=== PATIENT | male | born 1965 | race American Indian/Alaskan Native ===

== ENCOUNTER 2017-07-26 09:46 | Emergency (ER) | payer BC ==
[2017-07-26 09:46] VITALS: BMI 36.9
[2017-07-26 10:18] VITALS: TEMP 97.9
--- NOTE | 2017-07-26 11:55 | ED PDOC ---
Arrival/HPI - General Chief Complaint: Lower Extremity Problem/Injury Time Seen by Provider: 07/26/17 10:31 Historian: Patient - History of Present Illness Narrative History of Present Illness (Text): 07/26/17 11:52 52yo male with no PMhx present with complaint of right great toe pain x 2days. Pain with ambulation. Did not take any analgesic. Denies trauma ,swelling, redness, any other complaint. Past Medical History - Provider Review Nursing Documentation Reviewed: Yes - Infectious Disease Hx of Infectious Diseases: None - Cardiac Hx Cardiac Disorders: No - Pulmonary Hx Respiratory Disorders: No - Neurological Hx Neurological Disorder: No - HEENT Hx HEENT Disorder: No - Renal Hx Renal Disorder: No - Endocrine/Metabolic Hx Endocrine Disorders: No - Hematological/Oncological Hx Blood Disorders: No - Integumentary Hx Dermatological Disorder: No - Musculoskeletal/Rheumatological Hx Musculoskeletal Disorders: No - Gastrointestinal Hx Gastrointestinal Disorders: No - Genitourinary/Gynecological Hx Genitourinary Disorders: No - Psychiatric Hx Psychophysiologic Disorder: No Hx Substance Use: No - Anesthesia Hx Anesthesia: No Hx Anesthesia Reactions: No Hx Malignant Hyperthermia: No Family/Social History - Physician Review Nursing Documentation Reviewed: Yes Family/Social History: Unknown Family HX Smoking Status: Current Some Days Smoker Hx Alcohol Use: Yes Frequency of alcohol use: Daily Hx Substance Use: No Allergies/Home Meds Allergies/Adverse Reactions: Allergies No Known Allergies Allergy (Verified 07/26/17 10:19) Home Medications: Home Meds Medication Instructions Recorded Confirmed Cetirizine HCl [Zyrtec] 1 tab PO DAILY 11/22/15 07/26/17 Review of Systems - Physician Review All systems were reviewed & negative as marked: Yes - Review of Systems Constitutional: Normal Eyes: Normal ENT: Normal Respiratory: Normal Cardiovascular: Normal Gastrointestinal: Normal Genitourinary Male: Normal Musculoskeletal: Arthralgias (right great toe) Skin: Normal Neurological: Normal Endocrine: Normal Hemo/Lymphatic: Normal Psychiatric: Normal Physical Exam Vital Signs Reviewed: Yes Vital Signs Temp Pulse Resp BP Pulse Ox 07/26/17 10:08 97.9 F 78 18 135/89 98 Temperature: Afebrile Blood Pressure: Normal Pulse: Regular Respiratory Rate: Normal Appearance: Positive for: Well-Appearing, Non-Toxic, Comfortable Pain Distress: None Mental Status: Positive for: Alert and Oriented X 3 - Systems Exam Head: Present: Atraumatic, Normocephalic Pupils: Present: PERRL Extroacular Muscles: Present: EOMI Conjunctiva: Present: Normal Mouth: Present: Moist Mucous Membranes Neck: Present: Normal Range of Motion Respiratory/Chest: Present: Clear to Auscultation, Good Air Exchange. No: Respiratory Distress, Accessory Muscle Use Cardiovascular: Present: Regular Rate and Rhythm, Normal S1, S2. No: Murmurs Abdomen: Present: Normal Bowel Sounds. No: Tenderness, Distention, Peritoneal Signs Back: Present: Normal Inspection Upper Extremity: Present: Normal Inspection. No: Cyanosis, Edema Lower Extremity: Present: NORMAL PULSES, Normal ROM, Tenderness (right gret toe) , Neurovascularly Intact. No: Edema, Swelling, Erythema, Deformity, Temperature Abnormalties Neurological: Present: GCS=15, CN II-XII Intact, Speech Normal Skin: Present: Warm, Dry, Normal Color. No: Rashes Psychiatric: Present: Alert, Oriented x 3, Normal Insight, Normal Concentration Medical Decision Making ED Course and Treatment: 07/26/17 11:54 Uric acid 7.9 Right foot xray - Negative Result was DW the pt. Pain could be tendinitis. His pain improved in ED with Toradol. He will be DC home with a rx of Ibuprofen 600mg. He will be referred to his PMD. TRT Ed for any new or worsening symptoms. - Lab Interpretations Lab Results: Lab Results 07/26/17 10:45: Uric Acid 7.9 - RAD Interpretation Radiology Orders: 07/26/17 10:31 FOOT RIGHT GREAT TOE ROUTINE [RAD] Stat - Medication Orders Current Medication Orders: Discontinued Medications Ketorolac Tromethamine (Toradol) 60 mg IM STAT STA Stop: 07/26/17 10:32 Last Admin: 07/26/17 10:49 Dose: 60 mg MAR Pain Assessment Document 07/26/17 10:49 HI (Rec: 07/26/17 10:49 RI [id number]) Pain Reassessment Is this a pain reassessment? No Sleep Is patient sleeping during reassessment? No Presence of Pain Presence of Pain Yes Location Left, Right or Bilateral Right Pain Location Body Site Foot IM Administration Charges Document 07/26/17 10:49 HI (Rec: 07/26/17 10:49 RI [id number]) Charges for Administration # of IM Administrations 1 Disposition/Present on Arrival - Present on Arrival Any Indicators Present on Arrival: No History of DVT/PE: No History of Uncontrolled Diabetes: No Urinary Catheter: No History of Decub. Ulcer: No History Surgical Site Infection Following: None - Disposition Have Diagnosis and Disposition been Completed?: Yes Diagnosis: Toe pain Disposition: HOME/ ROUTINE Disposition Time: 12:00 Patient Plan: Discharge Condition: STABLE Discharge Instructions (ExitCare): Arthralgia (ED) Additional Instructions: Follow up with your doctor Return to ED for any new or worsening symptoms Prescriptions: Ibuprofen [Motrin Tab] 600 mg PO Q6 #20 tab Referrals: Marcelle Carranza MD [Primary Care Provider] - Follow up with primary
[2017-07-26 13:04] VITALS: BP 132/87; PULSE 82; RESP 16; O2SAT 100
--- NOTE | 2017-07-26 14:16 | RAD ---
PROCEDURE: Right Foot Radiographs. HISTORY: toe pain COMPARISON: None. FINDINGS: BONES: Normal. No fracture. JOINTS: Normal. SOFT TISSUES: Normal. OTHER FINDINGS: None. IMPRESSION: Normal right foot radiographs.
== END 2017-07-26 12:30 | disposition home or self-care (01) ==
LOC: ED 09:46
DX: M79.674 Pain in right toe(s) (principal)
CPT/HCPCS: 73660; 84550; 96372; 99284; J1885

== ENCOUNTER 2018-06-27 07:40 | Emergency (ER) | payer BC ==
[2018-06-27 07:41] VITALS: BMI 38.3
[2018-06-27 08:01] VITALS: RESP 18; O2SAT 98
--- NOTE | 2018-06-27 08:35 | ED PDOC ---
Arrival/HPI - General Chief Complaint: Headache Time Seen by Provider: 06/27/18 08:05 Historian: Patient - History of Present Illness Narrative History of Present Illness (Text): 06/27/18 08:06 53 year old male, with no significant past medical history, presents to the Emergency department complaining of intermittent right sided headache since 1 week. Patient informs worsening symptoms since 2 days with mild exacerbation of symptoms with bright light. Patient states taking Tylenol 2 hours prior to arrival with mild improvement to symptoms. Patient reports sinus congestion with clear nasal discharge prior to onset of symptoms but currently denies any associated symptoms. Patient denies any fever, chills, nausea, vomiting, swelling, exacerbation of symptoms by sound, dizziness, vision changes, numbness/tingling, abdominal pain, chest pain, shortness of breath, neck pain, back pain or any other complaints. Time/Duration: 1 week Symptom Onset: Gradual Symptom Course: Intermittent Quality: Aching Activities at Onset: Light Context: Home Past Medical History - Provider Review Nursing Documentation Reviewed: Yes - Infectious Disease Hx of Infectious Diseases: None - Cardiac Hx Cardiac Disorders: No - Pulmonary Hx Respiratory Disorders: No - Neurological Hx Neurological Disorder: No - HEENT Hx HEENT Disorder: No - Renal Hx Renal Disorder: No - Endocrine/Metabolic Hx Endocrine Disorders: No - Hematological/Oncological Hx Blood Disorders: No - Integumentary Hx Dermatological Disorder: No - Musculoskeletal/Rheumatological Hx Musculoskeletal Disorders: No - Gastrointestinal Hx Gastrointestinal Disorders: No - Genitourinary/Gynecological Hx Genitourinary Disorders: No - Psychiatric Hx Psychophysiologic Disorder: No Hx Substance Use: No - Anesthesia Hx Anesthesia: No Hx Anesthesia Reactions: No Hx Malignant Hyperthermia: No Family/Social History - Physician Review Nursing Documentation Reviewed: Yes Family/Social History: Unknown Family HX Smoking Status: Current Some Days Smoker Hx Alcohol Use: Yes Hx Substance Use: No Allergies/Home Meds Allergies/Adverse Reactions: Allergies No Known Allergies Allergy (Verified 07/26/17 10:19) Review of Systems - Physician Review All systems were reviewed & negative as marked: Yes - Review of Systems Eyes: absent: Vision Changes Musculoskeletal: absent: Neck Pain Neurological: Headache. absent: Dizziness Physical Exam - Physical Exam Narrative Physical Exam (Text): 06/27/18 08:06 Constitutional: No acute distress. Head: Normocephalic. Atraumatic. Temporal pulses 2+ bilaterally. No mastoid tenderness. Eyes: PERRL. ENT: Moist mucous membranes. No sinus tenderness. No discharge or bulging. Neck: Supple. No nuchal rigidity. No midline tenderness. Cardiovascular: Regular rate. Chest: No tenderness. Respiratory: Clear to auscultation bilaterally. GI: Soft. Nontender. Nondistended. Back: No CVA tenderness. Musculoskeletal: No tenderness or swelling of extremities. Skin: No rash. Neurologic: Alert, no focal deficit. Vital Signs Reviewed: Yes Vital Signs Temp Pulse Resp BP Pulse Ox 06/27/18 07:57 98.8 F 60 18 176/109 H 98 Temperature: Afebrile Blood Pressure: Hypertensive Pulse: Regular Respiratory Rate: Normal Appearance: Positive for: Well-Appearing, Non-Toxic, Comfortable Pain Distress: None Mental Status: Positive for: Alert and Oriented X 3 Medical Decision Making ED Course and Treatment: 06/27/18 08:06 Impression: 53 year old male presents to the Emergency department complaining of right sided headache. Plan: -- CT of Head -- Toradol -- Reassess and disposition Prior Visits: Notes and results from previous visits were reviewed. Progress Notes: Patient in no acute distress. Discharged home, f/u PMD, return to ED for worsening pain, fever, vomiting, vision change, or any other problem. - RAD Interpretation Narrative RAD Interpretations (Text): 06/27/18 08:47 CT of head reviewed by radiologist, shows: FINDINGS: HEMORRHAGE: No intracranial hemorrhage. BRAIN: No mass effect or edema. No atrophy or chronic microvascular ischemic changes. VENTRICLES: No hydrocephalus. Incidentally noted cavum septum pellucidum. CALVARIUM: Unremarkable. PARANASAL SINUSES: Mild chronic pansinusitis. Right maxillary retention cyst/polyp. MASTOID AIR CELLS: Unremarkable as visualized. No inflammatory changes. OTHER FINDINGS: None. IMPRESSION: No intracranial mass, hemorrhage or evidence of acute infarct. Chronic paranasal sinusitis and right maxillary retention cyst/polyp. Otherwise unremarkable examination. Radiology Orders: 06/27/18 08:06 HEAD W/O CONTRAST [CT] Stat [employer] Tr[employer] Installer: Radiologist - Medication Orders Current Medication Orders: Discontinued Medications Ketorolac Tromethamine (Toradol) 60 mg IM STAT STA Stop: 06/27/18 08:07 Last Admin: 06/27/18 08:11 Dose: 60 mg [facility] Pain Assessment Document 06/27/18 08:11 [facility] (Rec: 06/27/18 08:16 [facility] [id number]) Pain Reassessment Is this a pain reassessment? No IM Administration Charges Document 06/27/18 08:11 [facility] (Rec: 06/27/18 08:16 [facility] [id number]) Injection Site MAR Injection Site Left Deltoid Charges for Administration # of IM Administrations 1 - Scribe Statement The provider has reviewed the documentation as recorded by the Scribe Negro Maria. All medical record entries made by the Scribe were at my direction and personally dictated by me. I have reviewed the chart and agree that the record accurately reflects my personal performance of the history, physical exam, medical decision making, and the department course for this patient. I have also personally directed, reviewed, and agree with the discharge instructions and disposition. Disposition/Present on Arrival - Present on Arrival Any Indicators Present on Arrival: No History of DVT/PE: No History of Uncontrolled Diabetes: No Urinary Catheter: No History of Decub. Ulcer: No History Surgical Site Infection Following: None - Disposition Have Diagnosis and Disposition been Completed?: Yes Diagnosis: Headache Disposition: HOME/ ROUTINE Disposition Time: 08:54 Patient Plan: Discharge Condition: STABLE Discharge Instructions (ExitCare): Headache, Adult, Sinusitis in Adults Additional Instructions: FINDINGS: HEMORRHAGE: No intracranial hemorrhage. BRAIN: No mass effect or edema. No atrophy or chronic microvascular ischemic changes. VENTRICLES: No hydrocephalus. Incidentally noted cavum septum pellucidum. CALVARIUM: Unremarkable. PARANASAL SINUSES: Mild chronic pansinusitis. Right maxillary retention cyst/polyp. MASTOID AIR CELLS: Unremarkable as visualized. No inflammatory changes. OTHER FINDINGS: None. IMPRESSION: No intracranial mass, hemorrhage or evidence of acute infarct. Chronic paranasal sinusitis and right maxillary retention cyst/polyp. Otherwise unremarkable examination. Prescriptions: Amoxicillin/Clavulanate [Augmentin 875 MG-125 MG] 1 tab PO BID #20 tab Ibuprofen [Motrin] 600 mg PO Q6 #25 tab Referrals: Marcelle Carranza MD [Primary Care Provider] - Follow up with primary Forms: [email or web address] (T[place]anian), WORK NOTE
--- NOTE | 2018-06-27 08:44 | CT ---
Date of service: 06/27/2018 PROCEDURE: CT HEAD WITHOUT CONTRAST. HISTORY: headache COMPARISON: 11/22/2015 TECHNIQUE: Axial computed tomography images were obtained through the head/brain without intravenous contrast. Radiation dose: Total exam DLP = 1032.73 mGy-cm. This CT exam was performed using one or more of the following dose reduction techniques: Automated exposure control, adjustment of the mA and/or kV according to patient size, and/or use of iterative reconstruction technique. FINDINGS: HEMORRHAGE: No intracranial hemorrhage. BRAIN: No mass effect or edema. No atrophy or chronic microvascular ischemic changes. VENTRICLES: No hydrocephalus. Incidentally noted cavum septum pellucidum. CALVARIUM: Unremarkable. PARANASAL SINUSES: Mild chronic pansinusitis. Right maxillary retention cyst/polyp. MASTOID AIR CELLS: Unremarkable as visualized. No inflammatory changes. OTHER FINDINGS: None. IMPRESSION: No intracranial mass, hemorrhage or evidence of acute infarct. Chronic paranasal sinusitis and right maxillary retention cyst/polyp. Otherwise unremarkable examination.
[2018-06-27 09:00] VITALS: TEMP 98.2
[2018-06-27 09:21] VITALS: BP 142/87; PULSE 82
== END 2018-06-27 09:21 | disposition home or self-care (01) ==
LOC: ED 07:40
DX: R51 Headache (principal)
CPT/HCPCS: 70450; 96372; 99285; J1885

== ENCOUNTER 2019-01-05 15:25 | Emergency (ER) | payer BC ==
[2019-01-05 15:36] VITALS: RESP 18; TEMP 98.3; O2SAT 98; BMI 41.0
--- NOTE | 2019-01-05 16:08 | ED PDOC ---
Arrival/HPI - General Time Seen by Provider: 01/05/19 15:46 - History of Present Illness Narrative History of Present Illness (Text): 53 y/o M p/w neck pain x 3 days. Pain is in the posterior neck, sharp, worse with moving head laterally. Denies headache, fever, difficulty with moving head up or down, arm numbness or weakness. Patient states has taken toradol in past without any allergy. Past Medical History - Infectious Disease Hx of Infectious Diseases: None - Cardiac Hx Cardiac Disorders: No - Pulmonary Hx Respiratory Disorders: No - Neurological Hx Neurological Disorder: No - HEENT Hx HEENT Disorder: No - Renal Hx Renal Disorder: No - Endocrine/Metabolic Hx Endocrine Disorders: No - Hematological/Oncological Hx Blood Disorders: No - Integumentary Hx Dermatological Disorder: No - Musculoskeletal/Rheumatological Hx Musculoskeletal Disorders: No - Gastrointestinal Hx Gastrointestinal Disorders: No - Genitourinary/Gynecological Hx Genitourinary Disorders: No - Psychiatric Hx Psychophysiologic Disorder: No Hx Substance Use: No - Anesthesia Hx Anesthesia: No Hx Anesthesia Reactions: No Hx Malignant Hyperthermia: No Family/Social History Family/Social History: No Known Family HX Smoking Status: Current Some Days Smoker Hx Alcohol Use: Yes Hx Substance Use: No Allergies/Home Meds Allergies/Adverse Reactions: Allergies No Known Allergies Allergy (Verified 07/26/17 10:19) Review of Systems - Physician Review All systems were reviewed & negative as marked: Yes - Review of Systems Constitutional: absent: Fevers Cardiovascular: absent: Chest Pain Physical Exam - Physical Exam Narrative Physical Exam (Text): gen nad head nc/at eyes eomi ent mmm neck supple, no midline tenderness, FROM up and down chest no tenderness cv reg rate extremities no edema neuro alert, no focal deficit Vital Signs Temp Pulse Resp BP Pulse Ox 01/05/19 15:35 98.3 F 61 18 136/83 98 Medical Decision Making ED Course and Treatment: pain control, history and physical consistent with muscle strain at this time. return to ed for worsening pain, fever, stiffness, vomiting, or any other problem. Disposition/Present on Arrival - Present on Arrival Any Indicators Present on Arrival: No History of DVT/PE: No History of Uncontrolled Diabetes: No Urinary Catheter: No History Surgical Site Infection Following: None - Disposition Have Diagnosis and Disposition been Completed?: Yes Diagnosis: Neck muscle spasm Disposition: HOME/ ROUTINE Disposition Time: 16:08 Patient Plan: Discharge Condition: FAIR Discharge Instructions (ExitCare): Muscle Spasms (DC) Prescriptions: Methocarbamol [Robaxin-750] 1 tab PO Q8H #12 tablet Referrals: Marcelle Carranza MD [Primary Care Provider] - Follow up with primary Forms: WORK NOTE
[2019-01-05 16:17] VITALS: BP 134/90; PULSE 60
== END 2019-01-05 16:52 | disposition home or self-care (01) ==
LOC: ED 15:25
DX: M62.838 Other muscle spasm (principal)